=== PATIENT | male | born 1975 | race Caucasian/White ===

== ENCOUNTER 2016-12-22 01:41 | Emergency (ER) | payer OTHER ==
--- NOTE | 2016-12-22 02:22 | EDM.PDOC ---
ED HPI Trauma - General Chief Complaint: Lower Extremity Injury/Pain Stated Complaint: SORE FOOT Time Seen by Provider: 12/22/16 02:19 - History of Present Illness INITIAL COMMENTS - FREE TEXT/NARRATIVE: HISTORY AND PHYSICAL: History of present illness: Patient is 41-year-old white male presents with cervical chronic intermittent left foot pain is seen in the past by podiatry but this was in [place] he does not recall specifically what the diagnosis was he denies any recent trauma fever chills nausea vomiting history of gout or other concern Review of systems: As per history of present illness and below otherwise all systems reviewed and negative. Past medical history: As per history of present illness and as reviewed below otherwise noncontributory. Surgical history: As per history of present illness and as reviewed below otherwise noncontributory. Social history: No reported history of drug or alcohol abuse. Family history: As per history of present illness and as reviewed below otherwise noncontributory. Physical exam: HEENT: Atraumatic, normocephalic, pupils reactive, negative for conjunctival pallor or scleral icterus, mucous membranes moist, throat clear, neck supple, nontender, trachea midline. Lungs: Clear to auscultation, breath sounds equal bilaterally, chest nontender. Heart: S1S2, regular, negative for clicks, rubs, or JVD. Abdomen: Soft, nondistended, nontender. Negative for masses or hepatosplenomegaly. Negative for costovertebral tenderness. Pelvis: Stable nontender. Genitourinary: Deferred. Rectal: Deferred. Extremities: Patient noticed some swelling of his left foot he does have tenderness to palpation over his plantar fascia CMS neurovascular is unremarkable there is no erythema Neuro: Awake, alert, oriented. Cranial nerves II through XII unremarkable. Cerebellum unremarkable. Motor and sensory unremarkable throughout. Exam nonfocal. Diagnostics: X-ray left foot CBC uric acid Therapeutics: None Impression: #1 chronic intermittent left foot pain #2 probable plantar fasciitis Definitive disposition and diagnosis as appropriate pending reevaluation and review of above. Allergies/ADRs: Allergies No Known Allergies Allergy (Verified 12/22/16 01:50) Home Medications: Ambulatory Orders [place]-3/DHA/Epa/Fish Oil [Fish Oil 1,400 MG Softgel] 1,500 mg PO DAILY 05/03/15 [Confirmed 12/22/16] Past Medical History HEENT History: Reports: None Cardiovascular History: Reports: None Respiratory History: Reports: None Gastrointestinal History: Reports: None Other Gastrointestinal History: inguinal hernia Genitourinary History: Reports: None Musculoskeletal History: Reports: None Neurological History: Reports: None Psychiatric History: Reports: None Endocrine/Metabolic History: Reports: None Hematologic History: Reports: None Oncologic (Cancer) History: Reports: None Dermatologic History: Reports: None - Infectious Disease History Infectious Disease History: Reports: Chicken pox - Past Surgical History GI Surgical History: Reports: Hernia, inguinal Social & Family History - Family History Family Medical History: Noncontributory - Tobacco Use Smoking Status *Q: Light Tobacco Smoker Years of Tobacco use: 20 Packs/Tins Daily: 0.1 Used Tobacco, but Quit: No Second Hand Smoke Exposure: Yes - Caffeine Use Caffeine Use: Reports: Coffee, Soda - Recreational Drug Use Recreational Drug Use: No Review of Systems - Review of Systems Review Of Systems: ROS reveals no pertinent complaints other than HPI. Trauma Exam - Physical Exam Exam: See Below (See dictation) Course - Vital Signs Last Recorded V/S: Last Vital Signs Temp 36.6 C 12/22/16 01:47 Pulse 86 12/22/16 01:47 Resp 16 12/22/16 01:47 BP 157/104 H 12/22/16 01:47 Pulse Ox 99 12/22/16 01:47 - Orders/Labs/Meds Orders: Active Orders 24 hr Category Date Time Status Foot Comp Min 3V Lt [CR] Stat Exams 12/22/16 01:52 Taken URIC ACID [CHEM] Stat Lab 12/22/16 02:05 Received Labs: Laboratory Tests 12/22/16 Range/Units 02:05 WBC 8.61 (4.0-11.0) K/uL RBC 4.58 (4.50-5.90) M/uL Hgb 13.4 (13.0-17.0) g/dL Hct 39.2 (38.0-50.0) % MCV 85.6 (80.0-98.0) fL MCH 29.3 (27.0-32.0) pg MCHC 34.2 (31.0-37.0) g/dL RDW Std Deviation 36.7 (28.0-62.0) fl RDW Coeff of Ji 12 (11.0-15.0) % Plt Count 289 (150-400) K/uL MPV 10.00 (7.40-12.00) fL Neut % (Auto) 55.8 (48.0-80.0) % Lymph % (Auto) 30.8 (16.0-40.0) % [place] % (Auto) 10.2 (0.0-15.0) % Eos % (Auto) 2.7 (0.0-7.0) % Baso % (Auto) 0.5 (0.0-1.5) % Neut # (Auto) 4.8 (1.4-5.7) K/uL Lymph # (Auto) 2.7 H (0.6-2.4) K/uL [place] # (Auto) 0.9 H (0.0-0.8) K/uL Eos # (Auto) 0.2 (0.0-0.7) K/uL Baso # (Auto) 0.0 (0.0-0.1) K/uL Departure - Departure Time of Disposition: 02:21 Disposition: Home, Self-Care 01 Condition: good Clinical Impression: Foot pain, Plantar fasciitis Forms: ED Department Discharge Additional Instructions: The following information is given to patients seen in the emergency department who are being discharged to home. This information is to outline your options for follow-up care. We provide all patients seen in our emergency department with a follow-up referral. The need for follow-up, as well as the timing and circumstances, are variable depending upon the specifics of your emergency department visit. If you don't have a primary care physician on staff, we will provide you with a referral. We always advise you to contact your personal physician following an emergency department visit to inform them of the circumstance of the visit and for follow-up with them and/or the need for any referrals to a consulting specialist. The emergency department will also refer you to a specialist when appropriate. This referral assures that you have the opportunity for followup care with a specialist. All of these measure are taken in an effort to provide you with optimal care, which includes your followup. Under all circumstances we always encourage you to contact your private physician who remains a resource for coordinating your care. When calling for followup care, please make the office aware that this follow-up is from your recent emergency room visit. If for any reason you are refused follow-up, please contact the [facility] emergency department at and asked to speak to the emergency department charge nurse. [facility] [address] [place] [phone] Naprosyn as prescribed podiatry/PMD followup return as needed as discussed - My Orders Last 24 Hours: My Active Orders 12/22/16 01:52 Foot Comp Min 3V Lt [CR] Stat 12/22/16 02:05 URIC ACID [CHEM] Stat - Assessment/Plan Last 24 Hours: My Active Orders 12/22/16 01:52 Foot Comp Min 3V Lt [CR] Stat 12/22/16 02:05 URIC ACID [CHEM] Stat
[2016-12-22 02:56] VITALS: BP 156/90
--- NOTE | 2016-12-22 15:52 | CR ---
EXAM DATE: 12/22/16 PATIENT'S AGE: 41 Patient: MARY ELLEN WARNER Facility: [place], [place] Site . Site : 1975 Study: XRay Extremity Left FOOT [id number]/27/2017 2:11:54 AM Ordering Physician: Doctor Dubose Final Report: INDICATION: PAIN. SWELLING. TECHNIQUE: Three views of the left foot COMPARISON: None FINDINGS: Bones: Enthesophyte formation along the plantar aspect of the calcaneus. No fractures or bone lesions. Joint spaces: Unremarkable. Soft tissues: Unremarkable. IMPRESSION: No acute bony abnormality. Dictated by Harshil Ceron MD @ 12/22/2016 2:16:24 AM Dictated by: Harshil Ceron MD @ 12/22/2016 02:16:32 (Electronic Signature) Report Signed by Proxy. [facility]
== END 2016-12-22 02:54 | disposition home or self-care (01) ==
LOC: MW.ED 01:41
DX: M72.2 Plantar fascial fibromatosis (principal); F17.210 Nicotine dependence, cigarettes, uncomplicated
CPT/HCPCS: 36415; 73630-26-LT; 73630-LT; 84550; 85025; 99282; 99283

== ENCOUNTER → 2016-12-23 | Outpatient (CLI) | payer OTHER ==
--- NOTE | 2016-12-25 17:00 | CR ---
EXAM DATE: 12/23/16 PATIENT'S AGE: 41 Patient: MARY ELLEN WARNER Facility: [place], [place] Site . Site : 1975 Study: XRay Extremity Bilateral Feet [id number]/28/2017 2:32:58 PM Ordering Physician: Ryanne Coats Final Report: INDICATION : Pain in left foot TECHNIQUE : Three views of both feet, total of 6 images for review. Images are weight- bearing. COMPARISON : Left foot series dated 12/22/2016 FINDINGS : Left foot: Left foot alignment and bone mineralization normal. 1st MTP joint unremarkable. No definite soft tissue swelling or erosive changes. No fracture. Right foot: Mild narrowing of the 1st MTP joint. Minimal soft tissue swelling medial margin 1st MTP joint, consider early bunion deformity. No definite erosive changes or fracture. IMPRESSION : 1. Negative left foot series. 2. Minimal degenerative changes in the right 1st MTP joint with possible bunion deformity. 3. No erosive changes identified in the right or left foot. Dictated by Antione Livingston MD @ 12/23/2016 3:35:54 PM Dictated by: Antione Livingston MD @ 12/23/2016 15:36:06 (Electronic Signature) Report Signed by Proxy. [facility]
== END ==
LOC: MW.CHPOD 14:05
PROVIDERS: ATTEND Podiatrist Foot & Ankle Surgery
DX: M79.673 Pain in unspecified foot (principal)
CPT/HCPCS: 736302650; 73630-50

== ENCOUNTER → 2017-01-05 | Outpatient (CLI) | payer OTHER ==
[2017-01-05 09:13] LABS: CHLORIDE,CL 108 mmol/L (98-110); SODIUM,NA 142 mmol/L (136-146)
== END ==
LOC: MW.CHFP 08:09
PROVIDERS: ATTEND Physician Assistant
DX: I10 Essential (primary) hypertension (principal)
CPT/HCPCS: 36415; 80053

== ENCOUNTER 2017-09-18 16:59 | Emergency (ER) | payer OTHER ==
--- NOTE | 2017-09-18 17:29 | EDM.PDOC ---
ED HPI GENERAL MEDICAL PROBLEM - General Chief Complaint: General Stated Complaint: BODYACHES/COUGH/BLOOD IN STOOL Time Seen by Provider: 09/18/17 17:09 Source of Information: Reports: Patient History Limitations: Reports: No Limitations - History of Present Illness INITIAL COMMENTS - FREE TEXT/NARRATIVE: HISTORY AND PHYSICAL: History of present illness: Patient is a 42-year-old male who presents to the emergency room with complaints of cough and fever 3 days. He states he has been taking over-the- counter products which have not been alleviating his symptoms. He reports that he is coughing so hard he does have blood tinged sputum. Does have a history of smoking but has not smoked in several weeks. Denies any chest pain, shortness of breath, abdominal pain, nausea, vomiting or diarrhea. Has not received the influenza vaccine. Review of systems: As per history of present illness and below otherwise all systems reviewed and negative. Past medical history: As per history of present illness and as reviewed below otherwise noncontributory. Surgical history: As per history of present illness and as reviewed below otherwise noncontributory. Social history: No reported history of drug or alcohol abuse. Family history: As per history of present illness and as reviewed below otherwise noncontributory. Physical exam: Gen.: Well-developed and well-nourished 42-year-old male. Alert and oriented. Able to speak in full sentences without shortness of breath. Nontoxic appearing HEENT: Atraumatic, normocephalic, pupils reactive, negative for conjunctival pallor or scleral icterus, mucous membranes moist, throat clear, neck supple, nontender, trachea midline. Lungs: Fine expiratory wheezing noted she right posterior bases, breath sounds equal bilaterally, chest nontender. Heart: S1S2, regular, negative for clicks, rubs, or JVD. Abdomen: Soft, nondistended, nontender. Negative for masses or hepatosplenomegaly. Negative for costovertebral tenderness. Pelvis: Stable nontender. Genitourinary: Deferred. Rectal: Deferred. Extremities: Atraumatic, negative for cords or calf pain. Neurovascular unremarkable. Neuro: Awake, alert, oriented. Cranial nerves II through XII unremarkable. Cerebellum unremarkable. Motor and sensory unremarkable throughout. Exam nonfocal. Influenza is negative. Chest x-ray does not show any evidence of a pneumonia. Vital signs remain stable. Patient has been prescribed some Phenergan with codeine, Medrol Dosepak and an inhaler. Did discuss with patient the need for follow-up with his primary care in the next 1-2 days. He voices understanding and is agreeable to plan of care. He denies any further questions at this time. Diagnostics: Influenza screen, chest x-ray Therapeutics: [] Impression: Bronchitis Plan: 1. Please take your medications as directed. You have an inhaler, a steroid, and a cough suppressant. Do not take the phenergan with codeine when driving as this will cause drowsiness. 2. Follow up with her primary caregiver in the next 1-2 days. Return to ED as needed and as discussed Definitive disposition and diagnosis as appropriate pending reevaluation and review of above. Duration: Day(s): Location: Reports: Chest Back Pain Score (Numeric/FACES): 2 - Related Data Allergies Allergy/AdvReac Type Severity Reaction Status Date / Time No Known Allergies Allergy Verified 09/18/17 17:14 Home Meds: Home Meds Lisinopril [Lisinopril] 20 mg PO DAILY 09/18/17 [History] Past Medical History HEENT History: Reports: None Cardiovascular History: Reports: None Respiratory History: Reports: None Gastrointestinal History: Reports: None Other Gastrointestinal History: inguinal hernia Genitourinary History: Reports: None Musculoskeletal History: Reports: None Neurological History: Reports: None Psychiatric History: Reports: None Endocrine/Metabolic History: Reports: None Hematologic History: Reports: None Oncologic (Cancer) History: Reports: None Dermatologic History: Reports: None - Infectious Disease History Infectious Disease History: Reports: Chicken Pox - Past Surgical History GI Surgical History: Reports: Hernia, Inguinal Social & Family History - Family History Family Medical History: Noncontributory - Tobacco Use Smoking Status *Q: Never Smoker Years of Tobacco use: 20 Packs/Tins Daily: 0.1 Used Tobacco, but Quit: No Second Hand Smoke Exposure: No - Caffeine Use Caffeine Use: Reports: Other - Recreational Drug Use Recreational Drug Use: No ED ROS GENERAL - Review of Systems Review Of Systems: ROS reveals no pertinent complaints other than HPI. ED EXAM, GENERAL - Physical Exam Exam: See Below (See dictation) Course - Vital Signs Last Recorded V/S: Last Vital Signs Temp 97.4 F 09/18/17 17:16 Pulse 102 H 09/18/17 17:16 Resp 18 09/18/17 17:16 BP 139/87 09/18/17 17:16 Pulse Ox 95 09/18/17 17:16 - Orders/Labs/Meds Orders: Active Orders 24 hr Category Date Time Status Hemoccult [Fecal Occult Blood Collection] [RC] Care 09/18/17 17:12 Inactive ASDIRECTED Chest 2V [CR] Stat Exams 09/18/17 17:12 Taken Departure - Departure Time of Disposition: 19:02 Disposition: Home, Self-Care 01 Clinical Impression: Bronchitis - Discharge Information Referrals: PCP,None [Primary Care Provider] - Forms: ED Department Discharge Additional Instructions: My general discharge The following information is given to patients seen in the emergency department who are being discharged to home. This information is to outline your options for follow-up care. We provide all patients seen in our emergency department with a follow-up referral. The need for follow-up, as well as the timing and circumstances, are variable depending upon the specifics of your emergency department visit. If you don't have a primary care physician on staff, we will provide you with a referral. We always advise you to contact your personal physician following an emergency department visit to inform them of the circumstance of the visit and for follow-up with them and/or the need for any referrals to a consulting specialist. The emergency department will also refer you to a specialist when appropriate. This referral assures that you have the opportunity for follow-up care with a specialist. All of these measure are taken in an effort to provide you with optimal care, which includes your follow-up. Under all circumstances we always encourage you to contact your private physician who remains a resource for coordinating your care. When calling for follow-up care, please make the office aware that this follow-up is from your recent emergency room visit. If for any reason you are refused follow-up, please contact the [facility] Emergency Department at and asked to speak to the emergency department charge nurse. [facility] [address] [place] [phone] 1. Please take your medications as directed. You have an inhaler, a steroid, and a cough suppressant. Do not take the phenergan with codeine when driving as this will cause drowsiness. Take only at nighttime. 2. Follow up with her primary caregiver in the next 1-2 days. Return to ED as needed and as discussed - My Orders Last 24 Hours: My Active Orders 09/18/17 17:12 Hemoccult [Fecal Occult Blood Collection] [RC] ASDIRECTED Chest 2V [CR] Stat - Assessment/Plan Last 24 Hours: My Active Orders 09/18/17 17:12 Hemoccult [Fecal Occult Blood Collection] [RC] ASDIRECTED Chest 2V [CR] Stat
[2017-09-18 19:11] VITALS: BP 124/76
--- NOTE | 2017-09-19 14:28 | CR ---
EXAM DATE: 09/18/17 PATIENT'S AGE: 42 Patient: MARY ELLEN WARNER Facility: [place], [place] Site . Site : 1975 Study: XRay Chest [id number]/[id number]/2018 6:18:14 PM Ordering Physician: Doctor Dubose Final Report: INDICATION: cough, aches, bloody stool TECHNIQUE: Chest 2 views. COMPARISON: None. FINDINGS: Cardiovascular and mediastinum: Heart size and vasculature are normal in caliber and appearance. Mediastinum is within normal limits. Lungs and pleural spaces: Lungs are clear. No sign of infiltrate or mass. No sign of pleural effusion. No pneumothorax. Bones and soft tissues: No significant findings. IMPRESSION: Unremarkable chest. Dictated by: Vick Shelton MD @ 09/18/2017 18:43:20 (Electronic Signature) Report Signed by Proxy. [facility]
== END 2017-09-18 19:12 | disposition home or self-care (01) ==
LOC: MW.ED 16:59
DX: J40 Bronchitis, not specified as acute or chronic (principal); Z79.899 Other long term (current) drug therapy
CPT/HCPCS: 71046; 71046-26; 87804; 99283; 99284

== ENCOUNTER 2019-09-24 11:22 | Emergency (ER) | payer BC ==
[2019-09-24 11:52] VITALS: BP 123/84; PULSE 79
--- NOTE | 2019-09-24 12:48 | EDM.PDOC ---
ED HPI GENERAL MEDICAL PROBLEM - General Chief Complaint: Neuro Symptoms/Deficits Stated Complaint: NUMBNESS IN LEFT SIDE OF FACE Time Seen by Provider: 09/24/19 12:48 Source of Information: Reports: Patient - History of Present Illness INITIAL COMMENTS - FREE TEXT/NARRATIVE: HISTORY AND PHYSICAL: History of present illness: [Presents with paresthesia and a left cranial nerve VII distribution slight droop compared to right very subtle, there is actually no loss of sensation but he complains of numbness sensation soft touch sharp hot and cold area intact very slight weakness on the left lower branches of cranial nerve VII compared to the right side does have maxillary sinus tenderness left greater than right This began last week 4 days prior to arrival persistent symptoms prompted his visit today No fever nausea vomiting chills sweats He does have history of a skateboarding accident with loss of consciousness after head injury with unconscious state for 48hours notably there is a area of encephalomalacia frontal lobe which corresponds with his old head injury ] Review of systems: As per history of present illness and below otherwise all systems reviewed and negative. Past medical history: As per history of present illness and as reviewed below otherwise noncontributory. Surgical history: As per history of present illness and as reviewed below otherwise noncontributory. Social history: No reported history of drug or alcohol abuse. Family history: As per history of present illness and as reviewed below otherwise noncontributory. Physical exam: HEENT: Atraumatic, normocephalic, pupils reactive, negative for conjunctival pallor or scleral icterus, mucous membranes moist, throat clear, neck supple, nontender, trachea midline. Maxillary sinus tenderness left greater than right Lungs: Clear to auscultation, breath sounds equal bilaterally, chest nontender. Heart: S1S2, regular, negative for clicks, rubs, or JVD. Abdomen: Soft, nondistended, nontender. Negative for masses or hepatosplenomegaly. Negative for costovertebral tenderness. Pelvis: Stable nontender. Genitourinary: Deferred. Rectal: Deferred. Extremities: Atraumatic, negative for cords or calf pain. Neurovascular unremarkable. Neuro: Awake, alert, oriented. Cranial nerves II through XII unremarkable on the right and the left cranial nerve VII is slightly weak compared to the right side however this is very subtle very mild, forehead is spared cerebellum unremarkable. Motor and sensory unremarkable throughout. Exam nonfocal. 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 - Related Data Allergies Allergy/AdvReac Type Severity Reaction Status Date / Time No Known Allergies Allergy Verified 09/24/19 11:47 Home Meds: Home Meds Lisinopril 20 mg PO DAILY 09/18/17 [History] Allopurinol [Zyloprim] 100 mg PO DAILY 09/24/19 [History] Past Medical History HEENT History: Reports: Other (See Below) Other HEENT History: wears glasses Cardiovascular History: Reports: Hypertension Respiratory History: Reports: None Gastrointestinal History: Reports: None Other Gastrointestinal History: inguinal hernia Genitourinary History: Reports: None Musculoskeletal History: Reports: None Neurological History: Reports: None Psychiatric History: Reports: None Endocrine/Metabolic History: Reports: None Hematologic History: Reports: None Oncologic (Cancer) History: Reports: None Dermatologic History: Reports: None - Infectious Disease History Infectious Disease History: Reports: Chicken Pox - Past Surgical History GI Surgical History: Reports: Hernia, Inguinal Social & Family History - Family History Family Medical History: Noncontributory - Tobacco Use Smoking Status *Q: Never Smoker - Caffeine Use Caffeine Use: Reports: Energy Drinks - Recreational Drug Use Recreational Drug Use: No ED ROS GENERAL - Review of Systems Review Of Systems: See Below ED EXAM, GENERAL - Physical Exam Exam: See Below Course - Vital Signs Last Recorded V/S: Last Vital Signs Temp 98.4 F 09/24/19 11:48 Pulse 79 09/24/19 11:48 Resp 17 09/24/19 11:48 BP 123/84 09/24/19 11:48 Pulse Ox 96 09/24/19 11:48 - Orders/Labs/Meds Orders: Active Orders 24 hr Category Date Time Status EKG Documentation Completion [RC] STAT Care 09/24/19 12:03 Active COMPREHENSIVE METABOLIC PN,CMP [CHEM] Stat Lab 09/24/19 12:55 Received TROPONIN I [CHEM] Stat Lab 09/24/19 12:55 Received Labs: Laboratory Tests 09/24/19 09/24/19 Range/Units 12:24 12:55 WBC 6.35 (4.0-11.0) K/uL RBC 5.08 (4.50-5.90) M/uL Hgb 15.1 (13.0-17.0) g/dL Hct 44.2 (38.0-50.0) % MCV 87.0 (80.0-98.0) fL MCH 29.7 (27.0-32.0) pg MCHC 34.2 (31.0-37.0) g/dL RDW Std Deviation 40.9 (28.0-62.0) fl RDW Coeff of Ji 13 (11.0-15.0) % Plt Count 250 (150-400) K/uL MPV 10.20 (7.40-12.00) fL Neut % (Auto) 54.4 (48.0-80.0) % Lymph % (Auto) 33.7 (16.0-40.0) % [place] % (Auto) 7.9 (0.0-15.0) % Eos % (Auto) 3.1 (0.0-7.0) % Baso % (Auto) 0.9 (0.0-1.5) % Neut # (Auto) 3.5 (1.4-5.7) K/uL Lymph # (Auto) 2.1 (0.6-2.4) K/uL [place] # (Auto) 0.5 (0.0-0.8) K/uL Eos # (Auto) 0.2 (0.0-0.7) K/uL Baso # (Auto) 0.1 (0.0-0.1) K/uL Nucleated RBC % 0.0 /100WBC Nucleated RBCs # 0 K/uL Urine Color YELLOW Urine Appearance CLEAR Urine pH 6.0 (5.0-8.0) Ur Specific [place] >= 1.030 (1.001-1.035) Urine Protein NEGATIVE (NEGATIVE) mg/dL Urine Glucose (UA) NEGATIVE (NEGATIVE) mg/dL Urine Ketones NEGATIVE (NEGATIVE) mg/dL Urine Occult Blood NEGATIVE (NEGATIVE) Urine Nitrite NEGATIVE (NEGATIVE) Urine Bilirubin NEGATIVE (NEGATIVE) Urine Urobilinogen 0.2 (<2.0) EU/dL Ur Leukocyte Esterase NEGATIVE (NEGATIVE) Departure - Departure Time of Disposition: 13:29 Disposition: Home, Self-Care 01 Condition: Good Clinical Impression: Dumont's palsy, Sinusitis - Discharge Information Referrals: PCP,None [Primary Care Provider] - Forms: ED Department Discharge Additional Instructions: Medication as prescribed Return if symptoms persist or worsen Follow-up with primary care 2 weeks sooner as needed Helenarlene De La Cruz [facility] - Primary Care [address] [place] [id number] The following information is given to patients seen in the emergency department who are being discharged to home. This information is to outline your options for follow-up care. We provide all patients seen in our emergency department with a follow-up referral. The need for follow-up, as well as the timing and circumstances, are variable depending upon the specifics of your emergency department visit. If you don't have a primary care physician on staff, we will provide you with a referral. We always advise you to contact your personal physician following an emergency department visit to inform them of the circumstance of the visit and for follow-up with them and/or the need for any referrals to a consulting specialist. The emergency department will also refer you to a specialist when appropriate. This referral assures that you have the opportunity for follow-up care with a specialist. All of these measure are taken in an effort to provide you with optimal care, which includes your follow-up. Under all circumstances we always encourage you to contact your private physician who remains a resource for coordinating your care. When calling for follow-up care, please make the office aware that this follow-up is from your recent emergency room visit. If for any reason you are refused follow-up, please contact the [facility] emergency department at and asked to speak to the emergency department charge nurse. Sepsis Event Note - Evaluation Sepsis Screening Result: No Definite Risk - Focused Exam Vital Signs: Vital Signs Temp Pulse Resp BP Pulse Ox 09/24/19 11:48 98.4 F 79 17 123/84 96 Date Exam was Performed: 09/24/19 Time Exam was Performed: 13:24 - My Orders Last 24 Hours: My Active Orders 09/24/19 12:03 EKG Documentation Completion [RC] STAT 09/24/19 12:55 COMPREHENSIVE METABOLIC PN,CMP [CHEM] Stat TROPONIN I [CHEM] Stat - Assessment/Plan Last 24 Hours: My Active Orders 09/24/19 12:03 EKG Documentation Completion [RC] STAT 09/24/19 12:55 COMPREHENSIVE METABOLIC PN,CMP [CHEM] Stat TROPONIN I [CHEM] Stat
--- NOTE | 2019-09-24 13:07 | CT ---
Head CT Technique: Multiple axial sections through the brain were obtained. Intravenous contrast was not utilized. Comparison: No prior intracranial imaging is available. Findings: Focal atrophy is noted within the right frontal lobe with an adjacent area of encephalomalacia. This finding is most likely due to old trauma. No other abnormal areas of parenchymal density are seen. No evidence of intracranial hemorrhage. No midline shift or mass effect is seen. Mild mucosal thickening is seen within the upper right maxillary sinus and ethmoid sinuses. No acute calvarial abnormality is seen. Visualized mastoid sinuses are clear. Impression: 1. Findings within the right frontal lobe as described above most likely relating to old trauma. 2. No acute intracranial abnormality is otherwise seen. 3. Mucosal thickening within the right maxillary and ethmoid sinuses most likely representing mild chronic sinusitis. Diagnostic code #3 This report was dictated in [place] Standard Time
[2019-09-24 13:40] LABS: BLOOD UREA NITROGEN,BUN 16 mg/dL (7.0-18.0); CARBON DIOXIDE,CO2 26.4 mmol/L (21.0-32.0); CHLORIDE,CL 104 mmol/L (98-107); GLUCOSE RANDOM 85 mg/dL (74-106); POTASSIUM,K 4.2 mmol/L (3.5-5.1); SODIUM,NA 142 mmol/L (136-148)
== END 2019-09-24 14:19 | disposition home or self-care (01) ==
LOC: MW.ED 11:22
DX: G51.0 Bell's palsy (principal); J32.0 Chronic maxillary sinusitis; G93.89 Other specified disorders of brain; I10 Essential (primary) hypertension; Z79.899 Other long term (current) drug therapy
CPT/HCPCS: 36415; 70450; 70450-26; 80053; 81003; 84484; 85025; 93005; 99284; 99285-25